=== PATIENT | male | born 1985 | race Two or more races ===

== ENCOUNTER 2017-12-19 19:51 | Emergency (ER) | payer SELFPAY ==
[2017-12-19 20:04] VITALS: BP 157/90; PULSE 85; TEMP 98.4; BMI 25.9
--- NOTE | 2017-12-19 20:04 | PDOC ---
Rapid Medical Evaluation Time Seen by Provider: 12/19/17 20:01 Medical Evaluation: Allergies Allergy/AdvReac Type Severity Reaction Status Date / Time No Known Allergies Allergy Verified 12/18/17 10:20 12/19/17 20:01 I have performed a brief in-person evaluation of this patient. The patient presents with a chief complaint of: fever, fatigue, sore throat, x 5 days, 10+ episodes vomiting Pertinent physical exam findings: mildly erythematous throat, 2+ tonsils I have ordered the following: rapid strep The patient will proceed to the ED for further evaluation. Discharge Disposition - Diagnosis Sore throat - Referrals Referrals: Jakub Evans [Primary Care Provider] - - Patient Instructions - Post Discharge Activity
--- NOTE | 2017-12-19 20:59 | PDOC ---
History of Present Illness - General Chief Complaint: Cold Symptoms Stated Complaint: PAIN Time Seen by Provider: 12/19/17 20:01 History Source: Patient, Family Exam Limitations: No Limitations - History of Present Illness Initial Comments: Patient came to emergency department with complaints of persistent runny nose, headache and sinus tenderness, runny nose clear drainage, and sore throat pain. Was seen yesterday and given prescription for amoxicillin which he has taken a total of 4 doses. Timing/Duration: reports: getting worse, intermittent Severity: reports: moderate Associated Symptoms: reports: cough, fever/chills, nasal congestion, nasal drainage, sore throat. denies: wheezing Past History - Travel Traveled outside of the country in the last 30 days: No Close contact w/someone who was outside of country & ill: No - Past Medical History Allergies/Adverse Reactions: Allergies Allergy/AdvReac Type Severity Reaction Status Date / Time No Known Allergies Allergy Verified 12/18/17 10:20 Home Medications: Ambulatory Orders Amoxicillin - [Amoxicillin 500mg Capsule -] 500 mg PO BID #14 capsule 12/18/17 Ibuprofen 800 mg PO TID #30 tablet 12/18/17 COPD: No Hypercholesterolemia: Yes - Suicide/Smoking/Psychosocial Hx Smoking History: Current some day smoker Number of Cigarettes Smoked Daily: 1 Information on smoking cessation initiated: No 'Breaking Loose' booklet given: 12/18/17 Hx Alcohol Use: No Drug/Substance Use Hx: No Substance Use Type: None Review of Systems - Review of Systems Able to Perform ROS?: Yes Is the patient limited Mongolian proficient: Yes Constitutional: Yes: Symptoms Reported, See HPI, Fever, Malaise HEENTM: Yes: Symptoms Reported, See HPI, Nose Congestion, Throat Pain, Difficulty Swallowing Respiratory: Yes: Symptoms reported, See HPI, Cough (moist ). No: Wheezing Musculoskeletal: Yes: Symptoms Reported Integumentary: Yes: See HPI. No: Symptoms Reported Neurological: Yes: Symptoms reported, See HPI, Headache (frontal ) All Other Systems: Reviewed and Negative *Physical Exam - Vital Signs Last Vital Signs Temp Pulse Resp BP Pulse Ox 98.4 F 85 18 157/90 99 12/19/17 20:03 12/19/17 20:03 12/19/17 20:03 12/19/17 20:03 12/19/17 20:03 - Physical Exam General Appearance: Yes: Nourished, Appropriately Dressed, Mild Distress HEENT: positive: EOMI, ROMANA (glassy ), TMs Normal (congested), Pharynx Normal, Rhinorrhea, Sinus Tenderness Neck: positive: Supple, Lymphadenopathy (R), Lymphadenopathy (L). negative: Tender Respiratory/Chest: positive: Lungs Clear, Normal Breath Sounds Gastrointestinal/Abdominal: positive: Soft. negative: Tender Musculoskeletal: positive: Normal Inspection Extremity: positive: Normal Inspection, Normal Range of Motion Integumentary: positive: Dry, Warm, Pale Neurologic: positive: produce weigher II-XII NML intact, Fully Oriented, Alert, Normal Mood/ Affect, Normal Response, Motor Strength 5/5 Progress Note - Progress Note Progress Note: Upper respiratory infection, already taking amoxicillin, rapid strep test was positive and patient is aware. We will continue antibiotics and amoxicillin as previously prescribed. *DC/Admit/Observation/Transfer Diagnosis at time of Disposition: Upper respiratory infection, viral - Discharge Dispostion Disposition: HOME Condition at time of disposition: Stable Admit: No - Referrals Referrals: Jakub Evans [Primary Care Provider] - - Patient Instructions Printed Discharge Instructions: DI for Viral Upper Respiratory Infection -- Adult Additional Instructions: Continue amoxicillin as prescribed Rest, drink lots of fluids: Teas, water, soups, Pedialyte Saltwater gargles Steamy showers/seem to face break up mucus Avoid contact with others until fevers and cough resolved Lots of handwashing and good hygiene Continue [id number] medications for symptomatic relief Tylenol or Motrin for fever and pain Followup with private physician in one to 2 days as needed Return to emergency department for worsened symptoms, fevers, dehydration - Post Discharge Activity Forms/Work/School Notes: Back to Work
== END 2017-12-19 21:41 | disposition home or self-care (01) ==
LOC: JERFT 19:51
DX: J06.9 Acute upper respiratory infection, unspecified (principal); B97.89 Other viral agents as the cause of diseases classified elsewhere
CPT/HCPCS: 87070; 87430; 99281-25

== ENCOUNTER 2018-12-08 22:15 | Emergency (ER) | payer SELFPAY ==
[2018-12-08 22:28] VITALS: BP 126/88; PULSE 72; TEMP 98; BMI 26.6
--- NOTE | 2018-12-08 22:56 | PDOC ---
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) Past History - Past Medical History Allergies/Adverse Reactions: Allergies Allergy/AdvReac Type Severity Reaction Status Date / Time No Known Allergies Allergy Verified 12/08/18 22:28 Home Medications: Ambulatory Orders NK [No Known Home Medication] 12/08/18 COPD: No Hypercholesterolemia: Yes - Suicide/Smoking/Psychosocial Hx Smoking History: Current every day smoker Have you smoked in the past 12 months: Yes Number of Cigarettes Smoked Daily: 5 Information on smoking cessation initiated: No 'Breaking Loose' booklet given: 12/18/17 Hx Alcohol Use: No Drug/Substance Use Hx: No Substance Use Type: None *Physical Exam - Vital Signs Last Vital Signs Temp Pulse Resp BP Pulse Ox 98.0 F 72 18 126/88 100 12/08/18 22:26 12/08/18 22:26 12/08/18 22:26 12/08/18 22:26 12/08/18 22:26 - Physical Exam General Appearance: No: Apparent Distress Respiratory/Chest: positive: Lungs Clear, Normal Breath Sounds. negative: Respiratory Distress Cardiovascular: positive: Regular Rhythm, Regular Rate, S1, S2. negative: Murmur Gastrointestinal/Abdominal: positive: Normal Bowel Sounds, Soft. negative: Tender, Distended, Guarding, Rebound Male Genitalia: positive: normal genitalia, other (+cremasteric reflex B/L). negative: discharge, testicular tenderness, testicular mass, epididymus tender, CVAT Musculoskeletal: negative: CVA Tenderness Integumentary: positive: Normal Color. negative: Rash Neurologic: positive: Alert, Normal Mood/Affect ED Treatment Course - RADIOLOGY Radiology Studies Ordered: Category Date Time Status SCROTUM AND CONTENTS US [US] Stat Ultrasound 12/08/18 22:45 Ordered Medical Decision Making - Medical Decision Making 33 y/o M with hx of HLD presents with L testicular pain x 2 days. Took Advil today with minimal relief of pain. Denies fever, sob, cp, abd pain, n/v, hematuria, dysuria, hematuria, dysuria, increased urinary frequency/urgency, unusual penile discharge, unusual rash. Patient is sexually active with 1 partner; denies hx of STDs Given PE findings, less concerned for testicular torsion Consider possible epididymitis Plan: Testicular sono 12/08/18 22:54 Testicular sono unremarkable other than tiny L hydrocele UA negative as well Urine GC sent and pending, but not clinically suspicious for GC 12/09/18 01:25 *DC/Admit/Observation/Transfer Diagnosis at time of Disposition: Left hydrocele - Discharge Dispostion Disposition: HOME Condition at time of disposition: Stable Decision to Admit order: No - Referrals Referrals: Darryl Dwyer MD [Staff Physician] - 1 week - Patient Instructions Printed Discharge Instructions: DI for Hydrocele-Adult Additional Instructions: Thank you for choosing [facility]. It was a pleasure taking care of you. Your ultrasound was only notable for small hydrocele (fluid around the testicle) You were referred to urologist for further evaluation Return to the Emergency Department if your symptoms worsen or persist or have other concerning symptoms. Print Language: MAURITIAN - Post Discharge Activity
[2018-12-09 00:31] LABS: PH,URINE 5.5 (5.0-8.0); URINE APPEARANCE CLEAR; URINE BILIRUBIN NEGATIVE (NEGATIVE); URINE COLOR YELLOW; URINE GLUCOSE (UA) NEGATIVE (NEGATIVE); URINE KETONE 1+ (NEGATIVE); URINE LEUK ESTERASE NEGATIVE (NEGATIVE); URINE NITRITE NEGATIVE (NEGATIVE); URINE PROTEIN NEGATIVE (NEGATIVE)
== END 2018-12-09 01:55 | disposition home or self-care (01) ==
LOC: JER 22:15
DX: N43.2 Other hydrocele (principal); N50.812 Left testicular pain
CPT/HCPCS: 36415; 76870-TC; 81003; 87491; 87591; 99281-25